=== PATIENT | female | born 1960 | race Caucasian/White ===

== ENCOUNTER → 2024-01-28 | Emergency (ER) | payer MEDICARE, BC ==
[~2024-01-28] VITALS: Ht 154.9 cm; Wt 61.2 kg
[~2024-01-28] MED LIST: FLUORESCEIN SODIUM OPHTH 1 EA STRIP ONE; TETRAcaine 5 ML BOTTLE ONE
[2024-01-28 14:03] VITALS: BP 122/77; TEMP 98.6; O2SAT 95
[2024-01-28] MEDS: TETRAcaine 5 ML BOTTLE EACHEYE ONE (14:36)
[2024-01-28] MEDS: FLUORESCEIN SODIUM OPHTH 1 EA STRIP OP ONE (14:36)
== END | disposition home or self-care (01) ==
LOC: ER 13:12
DX: H57.13 Ocular pain, bilateral (principal); I10 Essential (primary) hypertension; G35 Multiple sclerosis

== ENCOUNTER 2024-09-02 23:52 | Inpatient (IN) | payer MEDICARE, BC ==
[~2024-09-02] VITALS: Ht 157.5 cm; Wt 61.3 kg
[2024-09-03] MEDS ORDERED: HYDROCODONE/APAP 5/325MG TABLET ONE ×2 (00:11→07:50)
[2024-09-03] MEDS: HYDROCODONE/APAP 5/325MG TABLET PO ONE (00:12)
[2024-09-03] MEDS ORDERED: ONDANSETRON HCL/PF 4 MG/2 ML VIAL ONE (01:30)
[2024-09-03] MEDS ORDERED: MORPHINE SULFATE INJ 4 MG/ML DISP.SYRIN ONE ×2 (01:31→03:37)
[2024-09-03] MEDS: ONDANSETRON HCL/PF 4 MG/2 ML VIAL IV ONE (01:40)
[2024-09-03] MEDS: MORPHINE SULFATE INJ 2 MG/ML DISP.SYRIN IV ONE ×2 (01:40→03:40)
[2024-09-03 01:42] LABS: CALCIUM, SERUM 9.4 mg/dL (8.5-10.1); CREATININE 0.7 mg/dL (0.6-1.3); POTASSIUM 4.2 mmol/L (3.5-5.1)
[2024-09-03 01:43] LABS: BASOPHILS # (AUTO) 0.1 K/uL (0.0-0.2); BASOPHILS % (AUTO) 0.4 % (0.0-2.0); EOSINOPHILS % (AUTO) 0.4 % (0.0-6.0); HEMATOCRIT 46 % (33-45); HEMOGLOBIN 15.5 g/dL (11.5-14.8); LYMPHOCYTES # (AUTO) 1.9 K/uL (0.8-4.8); LYMPHOCYTES % (AUTO) 14.9 % (20.0-44.0); MEAN CORPUSCULAR HEMOGLOBIN 32 PG (26.0-33.0); MEAN CORPUSCULAR HGB CONC 34 g/dl (31.0-36.0); MEAN CORPUSCULAR VOLUME 93 fL (82-100); MONOCYTES % (AUTO) 8.1 % (2.0-12.0); NEUTROPHILS # (AUTO) 9.7 K/uL (1.8-8.9); NEUTROPHILS % (AUTO) 76.2 % (43.0-81.0); PLATELET COUNT (AUTO) 277 K/uL (150-450); RED BLOOD CELL COUNT(AUTO) 4.92 MIL/uL (4.0-5.2); RED CELL DISTRIBUTION WIDTH 12.9 % (11.5-15.0); WHITE BLOOD COUNT (AUTO) 12.8 K/uL (4.3-11.0)
[2024-09-03 01:51] LABS: INR 0.92 (0.91-1.10); PARTIAL THROMBOPLASTIN TIME 23.6 SEC (24.3-34.3); PROTHROMBIN TIME 9.8 SECS (9.2-11.1)
[2024-09-03] MEDS ORDERED: Z GUARD REMEDY 4 OZ OINT TP PRN (03:30)
[2024-09-03] MEDS ORDERED: ONDANSETRON HCL/PF 4 MG/2 ML VIAL IVP PRN (03:30)
[2024-09-03] MEDS ORDERED: MAGNESIUM HYDROXIDE 30 ML UDC PO PRN (03:30)
[2024-09-03] MEDS ORDERED: ACETAMINOPHEN 325 MG TABLET PO PRN (03:30)
[2024-09-03] MEDS ORDERED: ZOLPIDEM TARTRATE 5 MG TABLET PO PRN (03:30)
[2024-09-03] MEDS ORDERED: MAG HYDROX/AL HYDROX/SIMETH 30 ML UDC PO PRN (03:30)
[2024-09-03] MEDS: IV D5/0.45 NACL 1,000 ML IV PRN (06:03)
[2024-09-03] MEDS ORDERED: PANTOPRAZOLE 40 MG TABLET.DR PO ONE (07:50)
[2024-09-03] MEDS: PANTOPRAZOLE 40 MG TABLET.DR PO SCH (08:02)
[2024-09-03] MEDS: HYDROCODONE/APAP 5/325MG TABLET PO PRN (08:03)
[2024-09-03 08:42] VITALS: BP 122/81; TEMP 98.4; O2SAT 98
[2024-09-03] MEDS ORDERED: ESCI20TA PO (09:25)
[2024-09-03] MEDS ORDERED: CYAN-51 PO (09:25)
[2024-09-03] MEDS ORDERED: MAGN500C16 PO (09:25)
[2024-09-03] MEDS ORDERED: CHOL200059 PO (09:25)
[2024-09-03] MEDS ORDERED: ALPR0.5T8 PO (09:25)
[2024-09-03] MEDS ORDERED: ASPI-1169 PO (09:25)
[2024-09-03] MEDS ORDERED: BUPR-319 PO (09:25)
[2024-09-03] MEDS ORDERED: LEVO100T9 PO (09:25)
[2024-09-03] MEDS ORDERED: BACL20TA PO (09:25)
[2024-09-03] MEDS ORDERED: OMEG500C2 PO (09:25)
[2024-09-03] MEDS ORDERED: DONEPEZIL PO (09:25)
[2024-09-03] MEDS: BACLOFEN (10 MG) 10 MG TABLET PO SCH (13:46)
[2024-09-03 16:03] VITALS: BP 120/75; TEMP 97.7; O2SAT 96
[2024-09-03] MEDS: ALPRAZOLAM 0.5 MG TABLET PO SCH (17:08)
[2024-09-03 20:00] VITALS: BP 135/89; TEMP 99.1; O2SAT 94
[2024-09-04 08:35] LABS: BASOPHILS % (AUTO) 0.4 % (0.0-2.0); EOSINOPHILS % (AUTO) 0.2 % (0.0-6.0); HEMATOCRIT 43 % (33-45); HEMOGLOBIN 14.5 g/dL (11.5-14.8); LYMPHOCYTES # (AUTO) 1.6 K/uL (0.8-4.8); LYMPHOCYTES % (AUTO) 16.7 % (20.0-44.0); MEAN CORPUSCULAR HEMOGLOBIN 32 PG (26.0-33.0); MEAN CORPUSCULAR HGB CONC 34 g/dl (31.0-36.0); MEAN CORPUSCULAR VOLUME 96 fL (82-100); MONOCYTES # (AUTO) 1.4 K/uL (0.1-1.30); MONOCYTES % (AUTO) 14.2 % (2.0-12.0); NEUTROPHILS # (AUTO) 6.6 K/uL (1.8-8.9); NEUTROPHILS % (AUTO) 68.5 % (43.0-81.0); PLATELET COUNT (AUTO) 234 K/uL (150-450); RED BLOOD CELL COUNT(AUTO) 4.48 MIL/uL (4.0-5.2); RED CELL DISTRIBUTION WIDTH 13.1 % (11.5-15.0); WHITE BLOOD COUNT (AUTO) 9.7 K/uL (4.3-11.0)
[2024-09-04 08:37] LABS: CREATININE 0.5 mg/dL (0.6-1.3); MAGNESIUM 2.5 mg/dL (1.8-2.4); PHOSPHORUS 3.4 mg/dL (2.5-4.9); POTASSIUM 4.1 mmol/L (3.5-5.1)
[2024-09-04] MEDS: ESCITALOPRAM OXALATE (10 MG) 10 MG TABLET PO SCH (09:00)
[2024-09-04] MEDS: BUPROPION XL 150 MG TAB.ER.24 PO SCH (09:00)
[2024-09-04] MEDS: LEVOTHYROXINE SODIUM 100 MCG TABLET PO SCH (09:00)
[2024-09-04] MEDS: ASPIRIN 81 MG TAB.CHEW PO SCH (09:00)
[2024-09-04] MEDS ORDERED: FENTANYL PF 100MCG/2ML AMPUL ONE (09:28)
[2024-09-04] MEDS ORDERED: MIDAZOLAM HCL 2 MG/2ML VIAL ONE (09:29)
[2024-09-04] MEDS ORDERED: FENTANYL PF 100MCG/2ML AMPUL IV PRN (10:00)
[2024-09-04] MEDS ORDERED: VANCOMYCIN 1 GM VIAL ONE (10:34)
[2024-09-04] MEDS ORDERED: BUPIVACAINE 0.5 % PF 150 MG/30 ML VIAL ONE (10:34)
[2024-09-04] MEDS ORDERED: ALBUTEROL HALF STRENGTH 1.25 MG/3 ML VIAL.NEB NEB PRN (11:00)
[2024-09-04] MEDS ORDERED: IPRATROPIUM NEB FS 0.5 MG/2.5 ML AMPUL.NEB NEB PRN (11:00)
[2024-09-04 12:45] VITALS: BP 140/84; TEMP 98.5; O2SAT 94
[2024-09-04 13:00] VITALS: BP 128/82; TEMP 98.3; O2SAT 94
[2024-09-04] MEDS ORDERED: MORPHINE SULFATE INJ 4 MG/ML DISP.SYRIN IV PRN (14:00)
[2024-09-04] MEDS: IV D5/0.45 NACL W/20 MEQ KCL 1L IV SCH (15:24)
[2024-09-04 16:00] VITALS: BP 125/78; TEMP 98.1; O2SAT 97
[2024-09-04] MEDS: CEFAZOLIN 2 GM in IV D5W 100 ML IV SCH (18:31)
[2024-09-04 18:39] LABS: APPEARANCE,URINE SLIGHTLY CLOUDY (CLEAR); BILIRUBIN,URINE NEGATIVE (NEGATIVE); BLOOD, URINE NEGATIVE Ery/uL (NEGATIVE); COLOR,URINE YELLOW (YELLOW); KETONES,URINE NEGATIVE (NEGATIVE); LEUKOCYTE ESTERASE ,URINE 2+ (NEGATIVE); NITRITE, URINE NEGATIVE (NEGATIVE); PH,URINE 6.5 (5.0-8.0); PROTEIN,URINE NEGATIVE (NEGATIVE); UGLUCOSE NEGATIVE (NEGATIVE); UROBILINOGEN,URINE 0.2 EU/dL (0.2)
[2024-09-04 19:14] LABS: RBC,URINE 0-2 /HPF (0-2); WBC,URINE 21-50 /HPF (0-3)
[2024-09-04 19:15] LABS: ADD URINE CULTURE YES; BACTERIA,URINE 2+ /HPF (None Seen)
[2024-09-04 20:00] VITALS: BP 119/69; TEMP 98.1; O2SAT 95
[2024-09-04] MEDS: MORPHINE SULFATE INJ 2 MG/ML DISP.SYRIN IV PRN (21:01)
[2024-09-05] MEDS: HYDROCODONE/APAP 10/325MG TABLET PO PRN (03:23)
[2024-09-05 07:00] VITALS: BP 109/68; TEMP 97.7; O2SAT 98
[2024-09-05] MEDS ORDERED: diphenhydrAMINE HCL 50 MG/ML VIAL IV PRN (08:30)
[2024-09-05] MEDS: FAMOTIDINE/PF INJ 20 MG/2 ML VIAL IV SCH (09:26)
[2024-09-05] MEDS: methylPREDNISolone SOD SUCC 125 MG/2ML VIAL IV ONE (09:26)
[2024-09-05] MEDS: diphenhydrAMINE HCL 50 MG/ML VIAL IV SCH (09:27)
[2024-09-05] MEDS: NITROFURANTOIN/MONOHYDRATE MACROCRYSTALS 100 MG CAPSULE PO SCH (11:20)
[2024-09-05 16:00] VITALS: BP 121/68; TEMP 97.9; O2SAT 98
[2024-09-05] MEDS: methylPREDNISolone SOD SUCC 125 MG/2ML VIAL IV SCH (17:08)
[2024-09-05 20:00] VITALS: BP 111/69; TEMP 98.6; O2SAT 94; O2SAT 96
[2024-09-06 07:30] LABS: BASOPHILS % (AUTO) 0.1 % (0.0-2.0); HEMATOCRIT 37 % (33-45); HEMOGLOBIN 12.8 g/dL (11.5-14.8); LYMPHOCYTES # (AUTO) 0.6 K/uL (0.8-4.8); LYMPHOCYTES % (AUTO) 6.9 % (20.0-44.0); MEAN CORPUSCULAR HEMOGLOBIN 33 PG (26.0-33.0); MEAN CORPUSCULAR HGB CONC 35 g/dl (31.0-36.0); MEAN CORPUSCULAR VOLUME 94 fL (82-100); MONOCYTES # (AUTO) 0.4 K/uL (0.1-1.30); MONOCYTES % (AUTO) 5.2 % (2.0-12.0); NEUTROPHILS # (AUTO) 7.5 K/uL (1.8-8.9); NEUTROPHILS % (AUTO) 87.8 % (43.0-81.0); PLATELET COUNT (AUTO) 251 K/uL (150-450); RED BLOOD CELL COUNT(AUTO) 3.94 MIL/uL (4.0-5.2); RED CELL DISTRIBUTION WIDTH 12.8 % (11.5-15.0); WHITE BLOOD COUNT (AUTO) 8.6 K/uL (4.3-11.0)
[2024-09-06 08:43] VITALS: BP 124/78; TEMP 98.4; O2SAT 94
[2024-09-06 11:26] LABS: CALCIUM, SERUM 9.1 mg/dL (8.5-10.1); CREATININE 0.8 mg/dL (0.6-1.3); MAGNESIUM 2.2 mg/dL (1.8-2.4); POTASSIUM 3.8 mmol/L (3.5-5.1)
[2024-09-06 16:02] VITALS: BP 127/78; TEMP 97.5; O2SAT 96
[2024-09-06 20:00] VITALS: BP 115/78; TEMP 98.4; O2SAT 95
[2024-09-07 07:39] LABS: BASOPHILS % (AUTO) 0.1 % (0.0-2.0); HEMATOCRIT 38 % (33-45); HEMOGLOBIN 13.1 g/dL (11.5-14.8); LYMPHOCYTES # (AUTO) 0.9 K/uL (0.8-4.8); MEAN CORPUSCULAR HEMOGLOBIN 32 PG (26.0-33.0); MEAN CORPUSCULAR HGB CONC 34 g/dl (31.0-36.0); MEAN CORPUSCULAR VOLUME 94 fL (82-100); MONOCYTES # (AUTO) 0.7 K/uL (0.1-1.30); NEUTROPHILS # (AUTO) 10.6 K/uL (1.8-8.9); NEUTROPHILS % (AUTO) 86.9 % (43.0-81.0); PLATELET COUNT (AUTO) 302 K/uL (150-450); RED BLOOD CELL COUNT(AUTO) 4.11 MIL/uL (4.0-5.2); RED CELL DISTRIBUTION WIDTH 12.6 % (11.5-15.0); WHITE BLOOD COUNT (AUTO) 12.2 K/uL (4.3-11.0)
[2024-09-07 07:49] LABS: CALCIUM, SERUM 8.8 mg/dL (8.5-10.1); CREATININE 0.6 mg/dL (0.6-1.3); MAGNESIUM 2.3 mg/dL (1.8-2.4); PHOSPHORUS 3.4 mg/dL (2.5-4.9); POTASSIUM 4.5 mmol/L (3.5-5.1)
[2024-09-07 08:00] VITALS: BP 130/80; TEMP 97.5; O2SAT 97
[2024-09-07] MEDS: FAMOTIDINE (20 MG) 20 MG TABLET PO SCH (08:43)
[2024-09-07] MEDS: methylPREDNISolone SOD SUCC 125 MG/2ML VIAL IV SCH (10:40)
[2024-09-07] MEDS: oxyCODONE/APAP (5/325 MG) 1 UDTAB TABLET PO PRN (13:35)
[2024-09-07 20:00] VITALS: BP 123/68; TEMP 98.1; TEMP 98.8; O2SAT 95
[2024-09-08 04:00] VITALS: BP 108/59; TEMP 97.9; O2SAT 99
[2024-09-08 08:00] VITALS: BP 156/85; TEMP 98.1; O2SAT 94
[2024-09-08 10:17] LABS: BASOPHILS % (AUTO) 0.1 % (0.0-2.0); HEMATOCRIT 41 % (33-45); HEMOGLOBIN 13.8 g/dL (11.5-14.8); LYMPHOCYTES # (AUTO) 1.5 K/uL (0.8-4.8); LYMPHOCYTES % (AUTO) 13.7 % (20.0-44.0); MEAN CORPUSCULAR HEMOGLOBIN 32 PG (26.0-33.0); MEAN CORPUSCULAR HGB CONC 34 g/dl (31.0-36.0); MEAN CORPUSCULAR VOLUME 94 fL (82-100); MONOCYTES # (AUTO) 0.9 K/uL (0.1-1.30); NEUTROPHILS # (AUTO) 8.8 K/uL (1.8-8.9); NEUTROPHILS % (AUTO) 78.2 % (43.0-81.0); PLATELET COUNT (AUTO) 357 K/uL (150-450); RED BLOOD CELL COUNT(AUTO) 4.37 MIL/uL (4.0-5.2); RED CELL DISTRIBUTION WIDTH 12.9 % (11.5-15.0); WHITE BLOOD COUNT (AUTO) 11.2 K/uL (4.3-11.0)
[2024-09-08] MEDS ORDERED: METH4TAB3 PO (10:20)
[2024-09-08] MEDS ORDERED: DOCU100T2 PO (10:24)
[2024-09-08] MEDS ORDERED: HYDR-3972 PO (10:24)
[2024-09-08 10:29] LABS: CALCIUM, SERUM 9.3 mg/dL (8.5-10.1); CREATININE 0.8 mg/dL (0.6-1.3); MAGNESIUM 2.2 mg/dL (1.8-2.4); PHOSPHORUS 2.8 mg/dL (2.5-4.9); POTASSIUM 3.6 mmol/L (3.5-5.1)
== END 2024-09-08 14:15 | DRG 511 ==
LOC: ER 23:58 → MED 09-03 07:59
PROVIDERS: ADMIT Internal Medicine
PROC: 0PSJ04Z Reposition Left Radius with Internal Fixation Device, Open Approach (ICD-10-PCS; principal; 2024-09-04 10:25)
DX: S52.572A Other intraarticular fracture of lower end of left radius, initial encounter for closed fracture (principal); J21.9 Acute bronchiolitis, unspecified; N39.0 Urinary tract infection, site not specified; S42.352A Displaced comminuted fracture of shaft of humerus, left arm, initial encounter for closed fracture; W01.0XXA Fall on same level from slipping, tripping and stumbling without subsequent striking against object, initial encounter; Y92.009 Unspecified place in unspecified non-institutional (private) residence as the place of occurrence of the external cause; I10 Essential (primary) hypertension; G35 Multiple sclerosis; D75.1 Secondary polycythemia; Z88.0 Allergy status to penicillin; F41.9 Anxiety disorder, unspecified; E05.00 Thyrotoxicosis with diffuse goiter without thyrotoxic crisis or storm; G47.33 Obstructive sleep apnea (adult) (pediatric); L27.0 Generalized skin eruption due to drugs and medicaments taken internally; T36.1X5A Adverse effect of cephalosporins and other beta-lactam antibiotics, initial encounter; Y92.89 Other specified places as the place of occurrence of the external cause
CPT/HCPCS: 36415; 71045-TC; 73030-TC; 73090-TC; 73100-TC; 73120-TC; 80048-TC; 81001; 83735-TC; 84100-TC; 85025-TC; 85730-TC; 86850-TC; 87081-TC; 87086-TC; 93307-TC; 97110-TC; 97112-TC; 97116-TC; 97530-TC; 97535-TC; A4223; A4565; G0378; J0690; J1100; J1200; J2250; J2270; J2405; J2704; J2919; J3010; J3370; J3480; J3490; J7030; J7050; J7060